=== PATIENT | female | born 1945 | race Caucasian/White ===

== ENCOUNTER 2017-01-15 08:38 | Inpatient (IN) | payer MEDICARE, MEDICAID ==
[~2017-01-15 08:38] MED LIST: ABILIFY10 MG PO; ABILIFY5 MG PO; ASA CHILDREN'S81 MG PO; ATARAX-DPS25 MG PO; CARAFATE1 GM PO; COZAAR DPS50 MG PO; CULTURELLE1 CAP PO; DELTASONE DPS10 MG PO; DULCOLAX-DPS10 MG PR; DULERA 200/58.8 GM IH; DUONEB DPS3 ML IH; DURAGESIC-1212 MCG TP; ELIQUIS2.5 MG PO; ENDOCET 5-3251 EACH PO; EPZICOM TABLET1 EACH PO; FENOFIBRATE160 MG PO; FENOFIBRATE48 MG PO; HUMALOG100 UNIT/1 SQ; IMODIUM DPS2 MG PO; INCRUSE ELLI62.5 MCG IH; K-PHOS ORIGINA500 MG PO; KEPPRA DPS500 MG PO; KEPPRA500 MG PO; KLONOPIN DPS0.5 MG PO; KLOR-CON M2020 MEQ PO; LASIX20 M1 PO; LEVAQUIN DPS500 MG PO; LOFIBRA160 MG PO; LOPRESSOR50 MG PO; MAALOX DPS30 ML PO; MAG-OX400 MG PO; METOPROLOL TART25 MG PO; MIRALAX PACKET17 GM PO; MORPHINE SULFAT15 M1 PO; MS CONTIN DPS15 MG PO; NEURONTIN300 MG PO; NEXIUM40 MG PO; NORVIR100 MG PO; NYSTATIN1 EAC1 TP; OMNICEF DPS300 MG PO; OXYCODONE-ACET1 EACH PO; PEPCID DPS20 MG PO; PERCOCET 5 DPS1 TAB PO; PRAVACHOL40 MG PO; PREZISTA800 MG PO; PROAIR HFA8.5 GM IH; PROTONIX40 MG PO; PROVENTIL HFA6.7 GM IH; REGLAN10 MG PO; ROCALTROL DP0.25 MCG PO; ROCALTROL0.25 MCG PO; SENNA S TABLET1 EACH PO; SENOKOTXTRA17.2 MG PO; SPIRIVA18 MCG IH; SPORTS CREAM85 GM TP; SURFAK DPS240 MG PO; SYMBICORT 16010.2 GM IH; SYNTHROID DP0.075 MG PO; SYSTANE BALANCE10 ML OU; TEARS NATURAL D15 ML OU; TRICOR145 MG PO; TYLENOL DPS325 MG PO; TYLENOL325 MG PO; ULTRAM DPS50 MG PO; VITAMIN D5000 UNIT PO; WELCHOL625 MG PO; XANAX DPS0.25 MG PO; ZANAFLEX4 MG PO; ZOFRAN DPS8 MG PO; ZOFRAN ODT4 MG SL; ZOFRAN4 MG PO; ZOFRAN8 MG PO
[2017-01-25] MEDS ORDERED: MOVANTIK25 MG PO (14:16)
[2017-01-25] MEDS ORDERED: CULTURELLE1 CAP PO (14:17)
[2017-01-25] MEDS ORDERED: PROTONIX40 MG PO (14:17)
[2017-01-25] MEDS ORDERED: VANCOCIN-DPS1 GM IV (14:19)
[2017-01-25] MEDS ORDERED: COLACE-DPS100 MG PO (14:19)
[2017-01-25] MEDS ORDERED: HYDROCODON-ACE1 EAC4 PO (14:20)
[2017-01-25] MEDS ORDERED: MAALOX DPS30 ML PO (14:20)
[2017-01-25] MEDS ORDERED: TYLENOL DPS325 MG PO (14:20)
[2017-01-25] MEDS ORDERED: DULCOLAX-DPS10 MG PR (14:21)
[2017-01-25] MEDS ORDERED: ZOFRAN DPS8 MG PO (14:21)
[2017-01-25] MEDS ORDERED: NEURONTIN DPS100 MG PO (14:21)
[2017-01-25] MEDS ORDERED: NITROSTAT0.4 MG SL (14:21)
[2017-01-25] MEDS ORDERED: MS CONTIN DPS15 MG PO (14:22)
[2017-03-13] MEDS ORDERED: ABILIFY5 MG PO (07:17)
[2017-03-13] MEDS ORDERED: DELTASONE DPS20 MG PO (07:17)
[2017-03-13] MEDS ORDERED: COZAAR DPS50 MG PO (07:17)
[2017-03-13] MEDS ORDERED: LOPRESSOR DPS50 MG PO (07:18)
[2017-03-13] MEDS ORDERED: ELIQUIS2.5 MG PO (07:18)
[2017-03-13] MEDS ORDERED: EPZICOM TABLET1 EACH PO (07:18)
[2017-03-13] MEDS ORDERED: KLONOPIN DPS0.5 MG PO (07:18)
[2017-03-13] MEDS ORDERED: NEURONTIN100 MG PO (07:19)
[2017-03-13] MEDS ORDERED: MOVANTIK25 MG PO (07:19)
[2017-03-13] MEDS ORDERED: MS CONTIN DPS15 MG PO (07:19)
[2017-03-13] MEDS ORDERED: NORVIR100 MG PO (07:19)
[2017-03-13] MEDS ORDERED: PEPCID DPS20 MG PO (07:20)
[2017-03-13] MEDS ORDERED: PREZISTA800 MG PO (07:20)
[2017-03-13] MEDS ORDERED: SYNTHROID DP0.075 MG PO (07:20)
[2017-03-13] MEDS ORDERED: ROCALTROL DP0.25 MCG PO (07:20)
[2017-03-13] MEDS ORDERED: SPIRIVA18 MCG IH (07:21)
[2017-03-13] MEDS ORDERED: ZITHROMAX500 MG PO (07:21)
[2017-03-13] MEDS ORDERED: DUONEB DPS3 ML IH (07:21)
[2017-05-15] MEDS ORDERED: OMNICEF DPS300 MG PO (15:10)
[2017-05-15] MEDS ORDERED: NORCO 5-325 TA1 EACH PO (15:12)
[2017-05-15] MEDS ORDERED: INCRUSE ELLI62.5 MCG IH (15:12)
[2017-05-15] MEDS ORDERED: GUAIFENESI100 MG/5 M PO (15:16)
[2017-05-15] MEDS ORDERED: NOVOLOG100 UNIT/2 SQ (15:19)
== END 2017-01-24 15:00 | DRG 974 ==
DX: A41.1 Sepsis due to other specified staphylococcus (principal); J96.01 Acute respiratory failure with hypoxia; B20 Human immunodeficiency virus [HIV] disease; R65.21 Severe sepsis with septic shock; J69.0 Pneumonitis due to inhalation of food and vomit; D61.818 Other pancytopenia; E46 Unspecified protein-calorie malnutrition; J44.9 Chronic obstructive pulmonary disease, unspecified; K59.03 Drug induced constipation; T40.2X5A Adverse effect of other opioids, initial encounter; E11.9 Type 2 diabetes mellitus without complications; E78.5 Hyperlipidemia, unspecified; G89.29 Other chronic pain; F41.9 Anxiety disorder, unspecified; E87.6 Hypokalemia; E83.42 Hypomagnesemia; Z86.711 Personal history of pulmonary embolism; Z79.01 Long term (current) use of anticoagulants

== ENCOUNTER 2017-03-06 16:27 | Inpatient (IN) | payer MEDICARE, MEDICAID ==
[~2017-03-06] VITALS: Ht 152.4 cm; Wt 67.9 kg
[~2017-03-06 16:27] MED LIST changes: +COLACE-DPS100 MG PO; +HYDROCODON-ACE1 EAC4 PO; +MOVANTIK25 MG PO; +NEURONTIN DPS100 MG PO; +NITROSTAT0.4 MG SL; +VANCOCIN-DPS1 GM IV
--- NOTE | 2017-03-10 08:54 | HP ---
ADMIT: 03/06/2017 RM/LOC: 528 [facility] MR#: [id number] [address] [address] [place] [address] History and Physical SEX: F AGE: 71 : 1945 DATE OF SERVICE: 03/06/2017 HISTORY OF PRESENT ILLNESS: Ms. Seo is a 71-year-old female with past medical history significant for hypertension, type 2 diabetes, HIV positive status, COPD, recent pneumonia, who presented to the [facility] on 03/06/2017 with hours of increased shortness of breath, cough as well as more productive sputum. He states that she was doing quite well at her rehab facility until yesterday evening when she developed a persistent cough that did not allow her to sleep. She states that she has a headache, sore throat, some chest discomfort secondary to the cough. She states that she feels like there is phlegm in her throat. She is not sure if the phlegm is discolored as she is not spitting it out. She denies having fever, but states that she was told that she had a fever at her facility earlier today. She tells me that she has not needed oxygen recently and that over the last 24 hours, she has needed some oxygen. She endorses having poor appetite and has not had much to eat or drink all day today. She just states that she feels miserable. In the clinic, she was noted to have a temperature of 37.8, blood pressure 126/82, respiration rate of 16, SpO2 of 96% on room air, and heart rate of 109. She did have a chest x-ray, that was negative for evidence of pneumonia, but did reveal small bilateral pleural effusions. She was given the option of going back to the [facility] facility with some antibiotics versus admission, and she said that she felt poorly enough that she would like to be admitted. PAST MEDICAL HISTORY: Significant for: 1. Hypertension. 2. Hyperlipidemia. 3. Type 2 diabetes, well controlled. 4. COPD. 5. HIV positive status. 6. GERD. 7. Hypothyroidism. 8. Obstructive sleep apnea. 9. MRSA carrier. 10.Anxiety and depression. 11.DVT. PAST SURGICAL HISTORY: She has a past surgical history significant for right carpal tunnel release, cataract surgery, cholecystectomy, hysterectomy, and an IVC filter placed several years ago. MEDICATIONS: Home medications include: 1. Maalox. 2. Dulcolax suppository. 3. Nitroglycerin as needed for chest pain. 4. Tylenol. 5. DuoNeb. 6. Abilify. 7. Calcitriol. ADMIT: 03/06/2017 RM/LOC: 528 [facility] MR#: [id number] [address] [address] [address] [place] [address] History and Physical SEX: F AGE: 71 : 1945 8. Clonazepam. 9. Eliquis. 10.Epzicom. .. 11.Pepcid. 12.Gabapentin. 13.Bland, with increase in urine. 14.Losartan. 15.Metoprolol. 16.MS Contin. 17.Naloxegol. 18.Norvir. 19.Prilosec. 20.Zofran. 21.Prezista. 22.Synthroid. ALLERGIES: SHE HAS ALLERGIES TO DULOXETINE AND IS NOTED TO BE AN INTOLERANCE. FAMILY MEDICAL HISTORY: Her mother suffered from leukemia and passed at the age of 96. She has a brother with COPD and a sister with dementia. Her father has since passed of unknown etiology. SOCIAL HISTORY: She denies any tobacco use. Denies significant alcohol use. Denies illicit drug use. She currently is [facility] in a [facility]. She is . PHYSICAL EXAMINATION: VITAL SIGNS: Here on admission, she was noted to have a temperature of 99.8, pulse of 97, respiration rate of 20, blood pressure 136/58, and 85% on room air. GENERAL: She appears to be in distress and is ill appearing. She is weak and does not wish to participate much in conversation. HEENT: Normocephalic and atraumatic. Hearing is intact to conversation. She has clear auditory canals as well as clear tympanic membranes. Her nose is midline. She does have some erythematous and boggy turbinates. She does have some mild posterior pharyngeal erythema. There are no tonsillar exudates. LUNGS: She has decreased breath sounds throughout. She has crackles noted at the bases bilaterally. She does have some wheezing throughout as well, more notably over the middle and lower lobes bilaterally. HEART: She has some sinus tachycardia. No murmurs were detected. ABDOMEN: Soft. It is distended with some adiposity. She does have normoactive bowel sounds. EXTREMITIES: She does not appear to have any lower extremity edema. SKIN: She did not have any rashes or lesions noted per my exam. PSYCH: Mood and affect are congruent and are appropriate for the situation. NEUROLOGIC: Grossly normal. LABS AND IMAGING: At this point in time, we are waiting for labs to be drawn. She does have a rapid flu test that is negative for influenza A and B. Imaging ADMIT: 03/06/2017 RM/LOC: 528 [facility] MR#: [id number] [address] [place] [id number] [place] [address] History and Physical SEX: F AGE: 71 : 1945 villeda, she does have a chest x-ray from the clinic that revealed she has small bilateral pleural effusions, but no evidence of pneumonia. She also had a moderate hiatal hernia noted on that radiograph. ASSESSMENT AND PLAN: Ms. Seo is a 71-year-old female with past medical history significant for COPD, obstructive sleep apnea, as well as HIV positive status and recent hospitalizations for pneumonia. She was hospitalized in October for community-acquired pneumonia and then again in 01/2017for aspiration pneumonia. She was [facility] to a [facility] facility and was doing well until earlier in the last 24 hours. 1. Acute hypoxic respiratory failure. The patient has SpO2 of 85% on room air. This is decreased from her baseline. It sounds like she is able to ambulate and function without oxygen. The differential for her hypoxic respiratory failure includes, but is not limited to, COPD exacerbation, viral respiratory infection, bacterial respiratory infection such as bacterial bronchitis. The suspicion for pneumonia is low at this time given that she had a chest radiograph that does not show signs of this. However, it is noted that she is early in her illness and that a pneumonia could be improving. Her oxygen needs continue to go up, a chest radiograph could be obtained which may demonstrate a blossoming pneumonia. At this point in time, we will obtain some basic lab work, including a CBC with differential as well as a CMP. We will also obtain a procalcitonin to evaluate the bacterial nature of her problem as well as obtain a respiratory viral pathogen panel which will evaluate for other etiologies of her respiratory distress. We will empirically place her on vancomycin with pharmacy to dose as well as Zosyn. We will use these agents as she has been in a [facility] facility for greater than five days and has recently been hospitalized within the last 90. This places her at greater risk for a healthcare-acquired pneumonia. We will taper antibiotics as appropriate. The potential regimens could consist of azithromycin plus a cephalosporin versus Levaquin. 2. Chronic obstructive pulmonary disease. We will continue her home inhalers at this point in time. We also continue the DuoNeb and add some incentive spirometry to her regimen at this time. We will also place her on prednisone 40 mg daily for the next five days in the setting of her respiratory distress could be secondary to a COPD exacerbation. 3. She is intermittently positive for systemic inflammatory response syndrome plus/minus in sepsis. We will continue to monitor her vital signs over the next several days. If she does again positive for sepsis, it would most likely be respiratory in nature. However, we would not exclude working up other etiologies including obtaining a UA as well as blood cultures and going from there. She is on fairly broad-spectrum antibiotics so this should help. We will also fluid resuscitate her with 1 L at this point in time and give her normal saline at 100 mL/h for a total of an additional 1 L. If she does truly become septic, she will need a 30 mL/kg bolus. She may also need higher level of care at that time. 4. HIV positive status. We will continue her HIV medications. She states ADMIT: 03/06/2017 RM/LOC: 528 [facility] MR#: [id number] [facility] [address] [address] [place] [address] History and Physical SEX: F AGE: 71 : 1945 that she has been doing well and taking the medications and has not skipped the doses except for today given to her poor state of health. She tells me that she does see a provider In [place], but has only seen this provider once. She tells me that her most recent CD4 count was good, but it has been seven months since this was checked. We will obtain a CD4 count at this time. She is immunocompromised by her CD4 count, this could also be in the differential for possible etiologies of her respiratory distress. 5. Type [address] her on a low-dose sliding scale with Accu- Cheks before meals and at bedtime. 6. For her gastroesophageal reflux disease, we will continue the Maalox as well as the Prilosec, and Pepcid. 7. Hypertension and hyperlipidemia. We will continue her home antihypertensive at this time. However, if her vital signs change in any manner, we will discontinue her hypertensive medication in the setting of possible sepsis. 8. Hypothyroidism. We will continue her Synthroid. 9. Chronic anticoagulation in the setting of DVT and IVC filter. We will continue the anticoagulation with the Eliquis. 10.Deep venous thrombosis prophylaxis. This will be taken care of with Eliquis. Maira Simon MD Resident / Alcon Strickland MD / sophia JOB #: [id number] CC: Alcon Strickland, Attending Physician Alcon Strickland, Family Physician
[2017-03-13] MEDS ORDERED: ABILIFY5 MG PO (07:17)
[2017-03-13] MEDS ORDERED: DELTASONE DPS20 MG PO (07:17)
[2017-03-13] MEDS ORDERED: COZAAR DPS50 MG PO (07:17)
[2017-03-13] MEDS ORDERED: KLONOPIN DPS0.5 MG PO (07:18)
[2017-03-13] MEDS ORDERED: ELIQUIS2.5 MG PO (07:18)
[2017-03-13] MEDS ORDERED: EPZICOM TABLET1 EACH PO (07:18)
[2017-03-13] MEDS ORDERED: LOPRESSOR DPS50 MG PO (07:18)
[2017-03-13] MEDS ORDERED: NORVIR100 MG PO (07:19)
[2017-03-13] MEDS ORDERED: MS CONTIN DPS15 MG PO (07:19)
[2017-03-13] MEDS ORDERED: MOVANTIK25 MG PO (07:19)
[2017-03-13] MEDS ORDERED: NEURONTIN100 MG PO (07:19)
[2017-03-13] MEDS ORDERED: PREZISTA800 MG PO (07:20)
[2017-03-13] MEDS ORDERED: ROCALTROL DP0.25 MCG PO (07:20)
[2017-03-13] MEDS ORDERED: PEPCID DPS20 MG PO (07:20)
[2017-03-13] MEDS ORDERED: SYNTHROID DP0.075 MG PO (07:20)
[2017-03-13] MEDS ORDERED: ZITHROMAX500 MG PO (07:21)
[2017-03-13] MEDS ORDERED: DUONEB DPS3 ML IH (07:21)
[2017-03-13] MEDS ORDERED: SPIRIVA18 MCG IH (07:21)
--- NOTE | 2017-04-05 13:11 | DS ---
ADMIT: 03/06/2017 RM/LOC: 528 [facility] MR#: [id number] [address] [address] [place] [address] General Discharge Summary SEX: F AGE: 71 : 1945 ADMISSION DATE: 03/06/2017 DISCHARGE DATE: 03/11/2017 FINAL DIAGNOSES: 1. Shortness of breath. 2. Chronic obstructive pulmonary disease with exacerbation. 3. Nausea and vomiting. 4. Hiatal hernia. 5. Human immunodeficiency virus. 6. Diabetes. 7. History of deep vein thrombosis. REASON FOR ADMISSION: See H and P for further details. Briefly, this 71-year- old female presented to clinic with hypoxia and shortness of breath. HOSPITAL COURSE: She was admitted and placed on oxygen, had aggressive pulmonary toilet. Initial workup just revealed some wheezing, and imaging was normal, so she was treated for a COPD exacerbation. She had initial IV steroids. She had a little nausea and vomiting partly through her stay but then, she started doing okay. She gradually improved. She wanted to return back to [facility] and this was arranged on the where she was discharged under skilled care benefits for weakness due to her hospitalization. Alcon Strickland MD/ sophia JOB #: [id number] CC: Alcon Strickland MD, Attending Physician Alcon Strickland MD, Family Physician
[2017-05-15] MEDS ORDERED: OMNICEF DPS300 MG PO (15:10)
[2017-05-15] MEDS ORDERED: NORCO 5-325 TA1 EACH PO (15:12)
[2017-05-15] MEDS ORDERED: INCRUSE ELLI62.5 MCG IH (15:12)
[2017-05-15] MEDS ORDERED: GUAIFENESI100 MG/5 M PO (15:16)
[2017-05-15] MEDS ORDERED: NOVOLOG100 UNIT/2 SQ (15:19)
== END 2017-03-11 10:50 | DRG 190 ==
LOC: 5MS 16:27
PROVIDERS: ADMIT Internal Medicine
DX: J44.1 Chronic obstructive pulmonary disease with (acute) exacerbation (principal); J96.01 Acute respiratory failure with hypoxia; B20 Human immunodeficiency virus [HIV] disease; R65.10 Systemic inflammatory response syndrome (SIRS) of non-infectious origin without acute organ dysfunction; I10 Essential (primary) hypertension; E11.9 Type 2 diabetes mellitus without complications; E78.5 Hyperlipidemia, unspecified; K21.9 Gastro-esophageal reflux disease without esophagitis; K44.9 Diaphragmatic hernia without obstruction or gangrene; E03.9 Hypothyroidism, unspecified; G47.33 Obstructive sleep apnea (adult) (pediatric); F41.9 Anxiety disorder, unspecified; F32.9 Major depressive disorder, single episode, unspecified; Z86.718 Personal history of other venous thrombosis and embolism; Z22.322 Carrier or suspected carrier of Methicillin resistant Staphylococcus aureus; Z79.01 Long term (current) use of anticoagulants

== ENCOUNTER 2017-06-19 14:48 | Emergency (ER) | payer MEDICARE, MEDICAID ==
--- NOTE | ~2017-06-19 | ER ---
ADMIT: 06/19/2017 RM/LOC: ER [facility] MR#: [id number] [address] [address] [place] [address] Emergency Room Report SEX: F AGE: 71 : 1945 DATE: 06/19/2017 ADDENDUM: A 71-year-old white female coming in with nausea and vomiting one time after she fell out of the wheelchair and heard hit her head. CT of the head was negative. She is chronically anemic at 8.2. She is HIV positive. Chemistries normal. Urine is normal otherwise along with her chest, so we will discharge her out. I gave her Zofran for nausea if she has it to keep her diet very simple and follow up as needed. CONDITION AT DISCHARGE: Good. Dom Ngo MD/ sophia JOB #: [id number] CC: Dom Ngo MD, Attending Physician Alcon Strickland MD, Family Physician
[~2017-06-19 14:48] MED LIST changes: +DELTASONE DPS20 MG PO; +GUAIFENESI100 MG/5 M PO; +LOPRESSOR DPS50 MG PO; +NEURONTIN100 MG PO; +NORCO 5-325 TA1 EACH PO; +NOVOLOG100 UNIT/2 SQ; +ZITHROMAX500 MG PO
== END 2017-06-19 17:30 | disposition home or self-care (01) ==
LOC: ER 14:48
DX: D64.9 Anemia, unspecified (principal); B20 Human immunodeficiency virus [HIV] disease; E11.9 Type 2 diabetes mellitus without complications; J44.9 Chronic obstructive pulmonary disease, unspecified; N18.9 Chronic kidney disease, unspecified; I12.9 Hypertensive chronic kidney disease with stage 1 through stage 4 chronic kidney disease, or unspecified chronic kidney disease; Z90.49 Acquired absence of other specified parts of digestive tract; Z86.711 Personal history of pulmonary embolism; Z88.8 Allergy status to other drugs, medicaments and biological substances; W05.0XXA Fall from non-moving wheelchair, initial encounter